=== PATIENT | male | born 2000 | race Caucasian/White ===

== ENCOUNTER → 2025-04-30 16:44 | Outpatient (REF) | payer BC, SELFPAY ==
--- NOTE | 2025-04-30 16:44 | S_PTH ---
PATIENT: Leon Abmrosio LOC: [facility] U#:[id number] AGE/SX: 25/M ROOM: RE04/30/[address]: Darline Morales PA-C : 2000 BED: DIS: SPEC #: [id number] RECD: 05/01/25 06:46 STATUS: JEWELL WALKER #: [id number] JACQUELINE: 04/30/25 16:[address]: Darline Morales DEPT: [facility] Surgical RECD BY: Mariza Cabrera ENTERED: 05/01/25 06:46 SP TYPE: Surgical OTHR DR: UNKNOWN,DOCTOR Tissues: A - Skin Procedures: Hematoxylin and Eosin Stain Gross and Microscopic Level 4
--- OUTSIDE RECORDS SUMMARY | 2025-04-30 16:49 | XMS_ITS | Clinical Summary ---
Author Organization [facility] Address [address] [place] [address] Care Team Providers Care Hot Dipper Name Role Phone Shazia Ambrosio APPLICATIONS SYSTEM ANALYST-WORSHIP DIRECTOR Primary Car e Provider Unavailable Source Comments [facility],non-owned Affiliates and Associated Physician Practices is amultiple site organization consisting of ambulatory clinics and hospital sitesin [place], [place], [place] and [place]. This disclosure is being madepursuant to the Care Everywhere program and may not contain all information available regarding this patient. Last updated 18.[facility] Allergies No known active allergies Medications * This document contains information received from the source organization and may not represent a complete record from that organization. * Be aware that medications may not be up to date on this document. Alwaysverify current medications with the patient. 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 Gender Identity Not on file Sexual Orientation Not on file Last Filed Vital Signs Vital Sign Reading Time Taken Comments Blood Pressure 110/60 08/10/2015 3:44 PM ASSISTANT HOUSEKEEPING MANAGER Pulse 80 08/10/2015 3:44 PM ASSISTANT HOUSEKEEPING MANAGER Temperature 36.9 C (98.5 F) 08/10/2015 3:44 PM ASSISTANT HOUSEKEEPING MANAGER Respiratory Rate 20 08/10/2015 3:44 PM ASSISTANT HOUSEKEEPING MANAGER Oxygen Saturation - - Inhaled Oxygen Concentration - - Weight 57.7 kg (127 lb 3.3 oz) 08/10/2015 2:05 P M ASSISTANT HOUSEKEEPING MANAGER Height - - Body Mass Index - - Plan of Treatment Health Maintenance Due Date Last Done Comments HIV SCREENING 2017 HPV VACCINE (1 - Male 3-dose series) 2017 MENINGOCOCCAL (Group B) VACC INE SHARED DECISION-MAKING (1 of 2 - Standard) 2018 HEPATITIS C SCREENING 01/21/2020 DTAP/TDAP/TD VACCINES (1 - Tdap) 2021 HEPATITIS B VACCINE (1 of 3 - 19+ 3-dose series) 2021 DEPRESSION SCREENING 08/08/2024 COVID-19 VACCINE (1 - 2023-2 5 season) 2025 INFLUENZA VACCINE (#1) 2025 ZOSTER VACCINE (1 of 2) 01/26/2052 HIB VACCINE Aged Out No longer eligi ble based on patient's age to complete this topic MENINGOCOCCAL GROUPS A/C/Y/W VACCINE Aged Out No longer eligible b ased on patient's age to complete this topic PNEUMOCOCCAL VACCINE Aged Out No long er eligible based on patient's age to complete this topic Insurance [employer] Care Teams Hot Dipper Relationship Specialty Start Date End Date Shazia Ambrosio APRN-WORSHIP DIRECTOR PCP - General Nurse Practitioner 08/10/15
--- OUTSIDE RECORDS SUMMARY | 2025-04-30 16:49 | XMS_ITS | Clinical Summary ---
Author Organization [facility] Address [address] [address] Care Team Providers Care Cigar Bander Hand Name Role Phone Provider, None Primary Care Provider Unavailabl e Allergies No known active allergies Medications Pseudoephedrine -APAP-DM (DAYQUIL PO) Take by mouth. Ac tive IBUPROFEN PO Take by mouth. Ac tive ketoconazole (NIZORAL) 2 % Shampoo LATHER UPPER BODY TWICE A WEEK FOR 5 MINUTES THEN RINSE 4 Active ketoconazole (NIZORAL) 2 % Cream APPLY TOPICALLY TO THE AFFECTED AREA OF TRUNK TWICE DAILY. 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 Gender Identity Not on file Sexual Orientation Not on file Last Filed Vital Signs Vital Sign Reading Time Taken Comments Blood Pressure 148/92 11/05/2024 3:20 PM CDT Pulse 91 11/05/2024 3:20 PM CDT Temperature 36.8 C (98.2 F) 11/05/2024 3:20 PM CDT Respiratory Rate 18 11/05/2024 3:20 PM CDT Oxygen Saturation 97% 11/05/2024 3:20 PM CDT Inhaled Oxygen Concentration - - Weight 75.3 kg (166 lb) 11/05/2024 3:20 PM CDT Height 172.7 cm (5' 8) 11/05/2024 3:20 PM CDT Body Mass Index 25.24 11/05/2024 3:20 PM CDT Plan of Treatment Health Maintenance Due Date Last Done Comments Hepatitis C Virus (HCV) Screening 2002 TdaP Immunization 2002 Meningococcal B Immunization (1 of 2 - Standard) 2018 Hepatitis B Immunization (1 of 3 - 19+ 3-dose series) 2021 Influenza Immunization (#1) 2025 SARS-COV-2 Immunization (3 - 2024- season) 2025 03/13/2021, 02/19/2021 Respiratory Syncytial Virus (RSV) Immunization (Adult) (1 - 1-dose 75+ series) 2077 DTaP/Tdap/Td Immunization Discontinued 01/30/2013 Meningococcal Immunization (ACWY) Aged Out 01/30/2013 No longer eligible based on patient's age to complete this topic Human Papillomavirus (HPV) Immunization Completed 09/23/2014, 02/22/2014, 01/21/2014 Pneumococcal Immunization Combined Aged Out No longer eligible based on patient's age to complete this topic Rotavirus Immunization Aged Out No lo nger eligible based on patient's age to complete this topic Insurance [facility] Care Teams Cigar Bander Hand Relationship Specialty Start Date End Date Provider, None [place] PCP - General 07/05/23
--- OUTSIDE RECORDS SUMMARY | 2025-04-30 16:49 | XMS_ITS | Clinical Summary ---
Author Organization [address] Address [address] [place] [address] [address] [place] [address] Care Team Providers Care Project Program Manager Name Role Phone Keven Chahal MD Primary Care Provider [phone] Allergies No known active allergies Medications No known medications Active Problems No known active problems Encounters Date Type Department Care Team Description 02/06/2025 3:30 PM CDT Office Visit [facility] Family Medicine at [address] [place] [phone] Keven Chahal MD Annual physical exam (Primary Dx) from Last 3 Months Immunizations Immunization Administration Dates Next Due HPV, Quadrivalent 09/23/2014,02/22/2014,01/22/20 14 Influenza, Unspecified 05/08/2024(Deferred: Lara ent Refused) Meningococcal ACWY, Unspecified 01/30/2013 Td, adsorbed 01/30/2013 Surgical History Surgery Date Site/Laterality Comments HAND SURGERY Left WISDOM TOOTH EXTRACTION Family History Medical History Relation Name Comments No Known Problems Brother No Known Problems Father No Known Problems Mother Relation Name Status Comments Brother Alive Father Alive Mother Alive Social History Tobacco Use Types Packs/Day Years Used Date Smoking Tobacco: Former Cigarettes Tobacco Cessation:Counseling Given: Not Answered AUDIT-C Answer Date Recorded Q1: How often do you have a drink containing alc ohol? Monthly or less 02/06/2025 Q2: How many drinks containi ng alcohol do you have on a typical day when you are drinking? 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 Gender Identity Not on file Sexual Orientation Not on file Obstetrics History Last Filed Vital Signs Vital Sign Reading Time Taken Comments Blood Pressure 130/80 02/06/2025 3:27 PM CDT Pulse 77 02/06/2025 3:27 PM CDT Temperature 36.6 C (97.9 F) 02/06/2025 3:27 PM CDT Respiratory Rate 18 02/06/2025 3:27 PM CDT Oxygen Saturation 97% 02/06/2025 3:27 PM CDT Inhaled Oxygen Concentration - - Weight 78.8 kg (173 lb 12.8 oz) 02/06/2025 3:27 PM CDT Height 172.7 cm (5' 8) 02/06/2025 3:27 PM CDT Body Mass Index 26.43 02/06/2025 3:27 PM CDT Plan of Treatment Health Maintenance Due Date Last Done Comments Hepatitis C Screening 2002 DTaP/Tdap/Td Vaccine (1 - Tdap) 01/31/2013 01/30/2013 Varicella Vaccines (1 of 2 - 13+ 2-dose series) 2015 Meningococcal B Vaccine (1 o f 2 - Standard) 2018 Hepatitis B Screening 01/26/2020 Covid-19 Vaccine (3 - 2024-2 6 season) 2025 03/13/2021, 02/19/2021 Influenza Vaccine (#1) 2025 Depression Screening 02/06/2026 02/06/2025 Regular Well Visit/Exam 18-64 02/06/2026 02/06/2025 HPV Vaccines Completed 09/23/2014, 02/22/2014, 01/21/2014 Pneumococcal vaccine <65 Aged Out No longer eligible based on patient's age to complete this topic Insurance [facility] [employer] Care Teams Project Program Manager Relationship Specialty Start Date End Date Keven Chahal MD [address] [place] [address] PCP - General Family Medicine 02/06/25
== END ==
LOC: ANHLAB 16:44
PROVIDERS: Visit Provider Physician Assistant Surgical
DX: D23.5 Other benign neoplasm of skin of trunk (principal)
CPT/HCPCS: 88305